=== PATIENT | female | born 1955 | race Hispanic/Latino ===

== ENCOUNTER 2017-01-02 19:28 | Emergency (ER) | payer OTHER ==
[~2017-01-02] VITALS: Ht 167.6 cm; Wt 97.7 kg
[~2017-01-02 19:28] MED LIST: ACET325C PO; ASPI-973 PO; LORA0.5T PO
[2017-01-02 19:52] VITALS: BP 122/79; PULSE 86; RESP 18; O2SAT 96
[2017-01-02 20:24] LABS: BASOPHILS % (AUTO) 0.5 % (0-3); EOSINOPHILS % (AUTO) 3.1 % (0-5); MONOCYTES % (AUTO) 7.1 % (4-12); Mean Corpuscular Hemoglobin 30.2 pg (27.0-35.0); Mean Corpuscular Volume 91.2 fL (81-100); NEUTROPHILS % (AUTO) 69.9 % (40-74); Platelet Count 313 bil/L (150-400)
[2017-01-02 20:43] LABS: APPEARANCE,URINE CLEAR (CLEAR,HAZY); COLOR,URINE YELLOW (YELLOW); OCCULT BLOOD,URINE NEGATIVE (NEGATIVE); UROBILINOGEN,URINE NORMAL (NORMAL)
[2017-01-02 20:45] LABS: Magnesium 2.1 mg/dL (1.6-2.6)
--- NOTE | 2017-01-02 21:30 | ED.REPORT ---
HPI-Abd Pain F 40 and Over Date of Service January 02, 2017 ED Provider: Dr. Kam 61 y/o female with a hx of HTN and DM presents to the ED complaining of abdominal pain, onset 4 days ago. The pt states she had a hysterectomy approximately 2 weeks ago and the surgical site has been painful for the past few days. The pt states the pain is exacerbated when she stands up and relieved when she lays down. Associated sx include pain during BM. She denies fever and chills. Nursing Notes Stated Complaint: PAIN IN ABDOMEN Chief Complaint: Female Abdominal Pain Nursing Notes Reviewed: Yes Allergies: Coded Allergies: No Known Allergies (Unverified Allergy, Unknown, 01/02/17) Scheduled Aspirin (Aspirin) 81 Mg Tablet 81 MG PO DAILY Scheduled PRN Acetaminophen (Acetaminophen) 325 Mg Capsule 325 MG PO prn PRN PRN For Headache Lorazepam (Lorazepam) 0.5 Mg Tablet 0.5 MG PO TID PRN PRN For Anxiety General Time Seen by MD: 21:30 Chief Complaint Abdominal pain Hx Obtained From: Patient Arrived By: Walk-in Sudden in Onset?: Yes Onset Occurred: 4 days ago Context of Onset: Recent surgery Symptom Duration: Since onset Progression since Onset: Unchanged Location: : Suprapubic Quality: Painful Radiation: : Does not radiate Severity: Current: Moderate Severity: Maximum: Moderate Recent Healthcare: Recent doctor visit Similar Sx Previous: No Past Medical History Past Medical History Reports: Diabetes mellitus, Hypertension Past Surgical History Reports: Hysterectomy Family History Noncontributory Smoking History Current Every Day Smoker Social History Alcohol Use: Denies alcohol use Drug Use: Denies drug use Other Social History: Good social support, , Local resident Occupation lives with Ambulatory Status Independent Review of Systems Reports: abdominal pain during BM Constitutional: Denies: Chills, Fever GI: Reports: Abdominal pain Complete sys rev & neg: except as marked. Physical Exam Vital Signs Vital Signs (First) Date Time Temp Pulse Resp B/P Pulse Ox O2 Delivery O2 Flow Rate FiO2 01/02/17 19:52 36.5 86 18 122/79 96 Room Air Initial VS: Reviewed Head / Eyes: Atraumatic, Normocephalic Neck: Supple, Full range of motion Extremities: Vascular intact, Neuro intact, No swelling, No tenderness Skin: Warm, Dry, No cyanosis Neurologic: Alert, Oriented, Nonfocal General/Constitutional: Awake, Alert, Cooperative Respiratory / Chest: Atraumatic, Breath sounds NL, Breath sounds = bilat, No respiratory distress, No rales, No rhonchi, No wheezing Cardiovascular: Heart rate NL, Regular rhythm, Heart sounds NL, No gallop, No murmurs, No rubs Abdomen: No guarding, No rebound Tenderness and vague mass over periincisional site. Back: Atraumatic, Full range of motion Interpretation & Diagnostics Lab Results Interpretation Result Diagram: 01/02/17201401/02/172014 Test 01/02/17 20:15 01/02/17 20:25 White Blood Count 10.2th/mm3 (3.8-10.1) Red Blood Count 4.30mil/mm3 (3.90-5.20) Hemoglobin 13.0g/dL (12.0-15.6) Hematocrit 39.2% (35.0-46.0) Mean Corpuscular Volume 91.2fL (81-100) Mean Corpuscular Hemoglobin 30.2pg (27.0-35.0) Mean Corpuscular Hemoglobin Concent 33.2% (32.0-37.0) Red Cell Distribution Width 13.2% (12.3-15.4) Platelet Count 313bil/L (150-400) Neutrophils (%) (Auto) 69.9% (40-74) Lymphocytes (%) (Auto) 19.0% (14-46) Monocytes (%) (Auto) 7.1% (4-12) Eosinophils (%) (Auto) 3.1% (0-5) Basophils (%) (Auto) 0.5% (0-3) Sodium Level 140mEq/L (134-144) Potassium Level 4.2mEq/L (3.5-5.2) Chloride Level 102mEq/L (97-108) Carbon Dioxide Level 26mmol/L (18-29) Blood Urea Nitrogen 18mg/dL (6-24) Creatinine 0.58mg/dL (0.57-1.00) Estimat Glomerular Filtration Rate 152mL/min (>59) Glucose Level 223mg/dL (60-99) Calcium Level 9.4mg/dL (8.5-10.1) Magnesium Level 2.1mg/dL (1.6-2.6) Total Bilirubin 0.2mg/dL (0.0-1.2) Aspartate Amino Transf (AST/SGOT) 14U/L (0-50) Alanine Aminotransferase (ALT/SGPT) 25U/L (0-32) Alkaline Phosphatase 110U/L (25-165) Total Protein 7.1g/dL (6.4-8.4) Albumin 3.8g/dL (3.4-5.0) Lipase 27U/L (13-60) Urine Color Yellow (YELLOW) Urine Appearance Clear (CLEAR,HAZY) Urine pH 6.0 (5.0-8.0) Urine Specific Alexis 1.025 (1.003-1.035) Urine Protein Negativemg/dL (NEG,TRACE) Urine Glucose (UA) 100mg/dL (NEGATIVE) Urine Ketones Negativemg/dL (NEGATIVE) Urine Occult Blood Negative (NEGATIVE) Urine Nitrite Negative (NEGATIVE) Urine Bilirubin Negative (NEGATIVE) Urine Urobilinogen Normalmg/dL (NORMAL) Urine Leukocyte Esterase Trace (NEGATIVE) Urine RBC 0-2/hpf (0-2) Urine WBC 6-10/hpf (0-5) Urine Epithelial Cells Few/hpf (NONE-MOD) Urine Crystals None seen (NONE SEEN) Urine Bacteria Few/hpf (NONE-FEW) Urine Hyaline Casts None/lpf (NONE) Urine Granular Casts None seen (NONE SEEN) Urine Waxy Casts None seen (NONE SEEN) Urine Red Blood Cell Casts None seen (NONE SEEN) Urine White Blood Cell Casts None seen (NONE SEEN) Urine Mucus None seen (None Seen) Urine Trichomonas None seen (NONE SEEN) Urine Yeast None (NONE SEEN) Urinalysis Comment None Urine Culture Reflexed Indicated CT Abd / Pelvis Interpretation Impression: Status post hysterectomy. Well-defined fluid collection is present in the infraumbilical abdominal wall subcutaneous fat. Differential possibilities include postoperative abscess, seroma, resolving hematoma. Hepatomegaly with fatty liver infiltration. Probable benign right hepatic cyst. Nonemergent followup recommended to assure benign nature. Signed by Alma Membreno M.D. 01/02/17. 22:16 Study type: Abdominal CT IV contrast Interpretation / Wet Read by: Interpret - Radiologist Re-Eval/Medical Decision Med Decision/Clinical Course Fluid collection deep to the wound. No signs of sepsis. Consulted with gynecology. They will see her in the office. Copy of her CAT scan was given. Short course of Percocet dispensed for pain. Return if any problems. Routine opiate warnings given. Re-Evaluation/Progress #1: Time of Eval: 23:02 Re-Evaluation/Progress Note: Rechecked pt. Discussed lab, imaging results and diagnosis. Re-Evaluation/Progress #2: Time of Eval: 01:27 Re-Evaluation/Progress Note: Rechecked pt. Discussed lab, imaging results and diagnosis. Informed the pt of the plan to discharge. Pt understands and agrees with plan. F/U instructions and RTER warning given. All questions addressed. Consultation : Call Returned at: 01:00 Head Loft Worker: Will see in office Note: Consulted [facility] on-call surgeon who doesn't want any action taken. Will see the pt in office today. Counseled Regarding: Diagnosis, Lab results, Need for follow-up, When/why to return to ED Discharge & Departure Primary Impression: Postoperative abdominal pain Disposition: Home Patient Instructions: Acute Abdominal Pain (ED) Additional Instructions: The CAT scan shows a fluid collection in the subcutaneous fat deep to the wound. This fluid may be blood, postoperative inflammatory fluid or possibly infection. I consulted with the surgeon utilization management manager for Dr. Samson. She would like us to leave it alone for now and have you seen in the office this week. Take a copy of the CAT scan with you to the office. Call later this morning for follow -up. He may take 1-2 Percocet every 6 hours as needed for severe pain. Do not drive or drink alcohol or consume acetaminophen for taking the Percocet. If you develop a fever or the wound becomes red or drains them come back to the emergency department. Do not drive tonight as you have receive sedating medications. Referrals: Shan Cardenas DO (PCP) Scribe Attestation Portions of this note were transcribed by Andrew Pederson. I, , personally performed the history, physical exam and medical decision-making;I reviewed and confirmed the accuracy of the information in the transcribed note. Signed by Ophelia Andrews. 01/03/17 01:27 copies to: Shan Cardenas Todd P DO January 02, 2017 21:30 Andrew Pederson January 03, 2017 00:48
[2017-01-02 21:56] VITALS: BP 119/69; PULSE 83; RESP 18; O2SAT 97
[2017-01-03 00:10] VITALS: BP 127/76; PULSE 79; RESP 18; O2SAT 97
[2017-01-03] MEDS ORDERED: HYDROmorphone 1 mg/mL Inj IVPUSH ONE (00:30)
[2017-01-03] MEDS ORDERED: _oxyCODONE/APAP 5-325 mg Tablet PO PRN (01:20)
[2017-01-03 01:46] VITALS: BP 130/78; PULSE 80; RESP 16; O2SAT 98
--- NOTE | 2017-01-03 10:05 | DRSVH ---
PROCEDURE: CT ABDOMEN AND PELVIS WITH CONTRAST ([id number]) INDICATIONS: wound pain and swelling in abdomen TECHNIQUE: After the administration of intravenous contrast, 5 mm thick sections acquired from the diaphragm to the symphysis. 5 mm coronal and sagittal reformats were acquired. For radiation dose reduction, the following was used: automated exposure control, adjustment of mA and/or kV according to patient kathryn cuenca. COMPARISON: [facility], CT, CT CHEST ABD PELVIS W CON, 10/23/2016, 14:02. FINDINGS: Image quality: Excellent. ABDOMEN: Lung bases: Lung bases are clear. Heart size is normal. Solid organs: Liver is mildly enlarged steatosis. Left hepatic lobe cyst is unremarkable. The spleen has normal in size and enhancement. Gallbladder is unremarkable. Biliary system is non dilated. P ancreas enhances normally. No adrenal nodules. Kidneys demonstrate normal size and enhancement, wit hout hydronephrosis. Peritoneum and bowel: Bowel loops demonstrate normal wall thickness and caliber. No free fluid or a ir. Nodes and vessels: No retroperitoneal or mesenteric adenopathy by size criteria. Aorta and inferior vena cava are normal in size. Miscellaneous: There is a 29 mm AP by 33 mm transverse fluid collection within the infraumbilical ant erior subcutaneous fat. No gas is identified within the fluid. Mild stranding is noted within the mony rounding subcutaneous fat. PELVIS: Genitourinary: Bladder wall thickness is normal. Miscellaneous: No inguinal hernias or adenopathy. Bones: No suspicious bony lesions. No vertebral body compression fractures. IMPRESSION: 1. Fluid collection with surrounding inflammation in the anterior wall subcutaneous fat with a differ ential of postoperative abscess, seroma or potentially resolving hematoma. 2. Hepatomegaly with steatosis. Dictated by: Alethea Romero M.D. on 01/03/2017 at 10:00 Approved by: Alethea Romero M.D. on 01/03/2017 at 10:03
== END 2017-01-03 01:47 | disposition home or self-care (01) ==
LOC: SED 19:28
DX: G89.18 Other acute postprocedural pain (principal); R10.30 Lower abdominal pain, unspecified; I10 Essential (primary) hypertension; E11.9 Type 2 diabetes mellitus without complications; F17.200 Nicotine dependence, unspecified, uncomplicated; Z90.710 Acquired absence of both cervix and uterus; Z79.82 Long term (current) use of aspirin
CPT/HCPCS: 36415; 74177; 80053; 81000; 83690; 83735; 85025; 87086; 87088; 96374; 99285; J1170; Q9967

== ENCOUNTER 2017-01-30 09:56 | Day surgery (SDC) | payer OTHER ==
[2017-01-30] VITALS (10 sets, daily range): BP systolic 115–150; BP diastolic 74–91; PULSE 86–98; RESP 13–22; O2SAT 94–100
[~2017-01-30] VITALS: Ht 167.6 cm; Wt 96.8 kg
[2017-01-30] MEDS ORDERED: fentaNYL-PF 50 mCg/mL 2 mL Inj ONE (09:57)
[2017-01-30] MEDS ORDERED: Ondansetron 2 mg/mL 2 mL Inj ONE (09:57)
[2017-01-30] MEDS ORDERED: Phenylephrine/NS 100 mCg/mL 10 mL Syringe IVPUSH ONE (09:57)
[2017-01-30] MEDS ORDERED: Dexamethasone 4 mg/mL Inj ONE (09:57)
[2017-01-30] MEDS ORDERED: MetoCLOpramide 5 mg/mL 2 mL Inj ONE (09:57)
[2017-01-30] MEDS ORDERED: Propofol 10,000 mCg/mL 20 mL Inj ONE (09:57)
[2017-01-30] MEDS: Lactated Ringer's 1,000 ML IV SCH ×2 (10:11→11:03)
[2017-01-30] MEDS ORDERED: SENN-169 PO (10:38)
[2017-01-30] MEDS ORDERED: OXYC5TAB72 PO (10:38)
[2017-01-30] MEDS ORDERED: Lactated Ringer's 1,000 ML IV SCH (10:56)
[2017-01-30] MEDS ORDERED: Lactated Ringer's 500 ML IV PRN (10:56)
--- NOTE | 2017-01-30 10:56 | PCM.HPANE ---
Patient Data Date of Service: Jan 30, 2017 Surgeon Admitting Provider: Attending Provider:Omi Madrid MD Primary Care Physician:Shan Cardenas DO Other Provider:Yana Gramajo Anesthesia Reason for Visit Left Breast Cancer, Right Breast Adh Ht/WT & BMI Height (Feet): 5 Height (Inches): 6 Weight (Kilograms): 96.8 Body Mass Index 34.00 Allergies Coded Allergies: No Known Allergies (Unverified Allergy, Unknown, 01/02/17) Past Anesthesia History Anesthesia History: Denies:: Anesthesia Reactions Diabetes History Hx Diabetes?: Yes Type of Diabetes: Diet Controlled Current Bedside Blood Glucose: 146 MRSA MRSA: No Medications Hypertension Medication: No Home Meds Incl Beta Reina: No Reported Medications Sennosides/Docusate Sodium (Stool Softener-Stimulant Lax)8.6 Mg-50 Mg Tablet1 Tab PO PRN #30 01/30/17 oxyCODONE 5 Mg Tablet5 Mg PO PRN #60 01/30/17 Lorazepam 0.5 Mg Tablet0.5 Mg PO TID PRN For Anxiety Ref 0 11/29/16 Acetaminophen 325 Mg [id number] Mg PO prn PRN For Headache 10/18/16 Aspirin 81 Mg [id number] Mg PO DAILY Ref 0 10/18/16 History History of ENT Problems?: No HEENT History: Denies:: Abnormal Airway Hearing Problem Denture Type: None Teeth Condition: Within Normal Limits Hx of Heart Problems?: No Cardiovascular History: Denies:: Chest Pain Congestive Heart Failure Hypertension Hx of Respiratory Problem?: No Respiratory History: Denies:: Oxygen Administration Tuberculosis Use of C-PAP Machine Hx Neurologic Problems?: No Hx of GI Problems?: No Gastrointestinal History: Positive for:: Gastroesphageal Reflux (occassionall) Hx of Problems?: No Genitourinary History: Denies:: Kidney Stones Female Hx: Positive for:: Problems with Breasts? (left breast ca current admission problem, ) Denies:: Currently Hx Musculoskeletal Problems?: No Hx of Psycho/Social Problems?: No Hx Surgeries?: Yes (ANDRESSA/BSO) Hx Any Other Health Problems?: Yes Other History: Positive for:: Cancer (left breast) Denies:: Thyroid Disease Hx Diabetes: YesBedside Blood Glucose: 146 Hx Alcohol Use: NoHx Substance Use: No Smoking Status: Current Every Day Smoker Have You Smoked inLast 12 mo: Yes Stop/Bang Treated for Sleep Apnea?: No Do You Have a CPAP Machine?: No P-Blood Pressure: treated: No B- Body Mass Index > 35 kg/m2: No A- Age over 50: Yes N- Neck Large Circumference: No G- Gender Male: No MALIA Risk Assessment: Low Risk, <3 Yes MALIA Category 4 OutPt Procedure: Yes Risk Assessment Category Category 1A: Patient has history of documented sleep apnea, and HAS NOT received any narcotic, sedative or anesthesia administration during this stay. Category 1B: Patient has history of documented sleep apnea, and HAS received any narcotic , sedative or anesthesia administration during this stay Category 2: Patient has SUSPECTED Obstructive Sleep Apnea, and HAS received any narcotic , sedative or anesthesia administration during this stay. Category 3: Patient has SUSPECTED Obstructive Sleep Apnea and HAS NOT received narcotic, sedative or anesthesia administration during this stay. Category 4: Outpatient in Procedural Areas with known sleep apnea or who screen positive for High Risk via the STOP/BANG questionnaire. Exam Exam Vital Signs Vital Signs Date Time Temp Pulse Resp B/P Pulse Ox O2 Delivery O2 Flow Rate FiO2 01/30/17 10:27 35.9 98 18 115/81 98 Room Air General Appearance: Alert, Oriented X3, Cooperative HEENT/AIRWAY: MP 3, Neck Movement, Mouth Opening (Wide) Lungs: Clear to Auscultation, Normal Air Movement Heart: Regular Rate/Rhythm, Normal S1, Normal S2 Meds/Labs/Diagnostics Admission Meds Current Medications Lactated Ringer's (Lr) 1,000 ml @ 120 mls/hr Q8H20M IV Last administered on 10:11; Start 01/30/17 at 05:00; Stop 01/30/17 at 13:19 Scopolamine (Transderm-Scop Patch) 1.5 mg ONCE ONCE TOPICAL Last administered on 01/30/17 10:29; Start 01/30/17 at 07:25; Stop 01/30/17 at 07:26; Status DC Bedside Blood Glucose: 146 Plan Impression Patient chart reviewed, patient interviewed and anesthestic plan with risks, benefits, and alternatives discussed, and informed consent obtained. NPO per Anesth. Guidelines: Yes ASA Physical Status: ASA1 Plus Emergency Anesthetic Plan: GA Bene/Risks/Altern/Consents: Yes HP Complete Prior to Induction: Yes Ciro Pro MD Jan 30, 2017 10:56
[2017-01-30] MEDS ORDERED: fentaNYL-PF 50 mCg/mL 2 mL Inj IVPUSH PRN (11:00)
[2017-01-30] MEDS ORDERED: HYDROmorphone 1 mg/mL Inj IVPUSH PRN (11:00)
[2017-01-30] MEDS ORDERED: Dexamethasone 4 mg/mL Inj IVPUSH PRN (11:00)
[2017-01-30] MEDS ORDERED: Labetalol 5 mg/mL 4 mL Inj IV PRN (11:00)
[2017-01-30] MEDS ORDERED: Ondansetron 2 mg/mL 2 mL Inj IVPUSH PRN (11:00)
[2017-01-30] MEDS ORDERED: hydrALAZINE 20 mg/mL Inj IVPUSH PRN (11:00)
[2017-01-30] MEDS ORDERED: Atropine 0.4 mg/mL Inj IVPUSH PRN (11:00)
[2017-01-30] MEDS ORDERED: MetoCLOpramide 5 mg/mL 2 mL Inj IVPUSH PRN (11:00)
[2017-01-30] MEDS ORDERED: Phenylephrine 10,000 mCg/mL Inj IVPUSH PRN (11:00)
[2017-01-30] MEDS ORDERED: EPHEDrine Sulfate 50 mg/mL Inj IVPUSH PRN (11:00)
--- NOTE | 2017-01-30 11:14 | DRSVH ---
PROCEDURE: NM SENTINEL NODE INJECTION ONLY, LEFT BREAST RADIOPHARMACEUTICAL: 0.5 mCi Millipore filtered Tc-99m sulfur colloid. INDICATIONS: LEFT BREAST CANCER PROCEDURE: The indications, alternatives, benefits, risks, and complications of the procedure were explained to the patient. Written informed consent was obtained and placed in the chart. The area around the nip ple was prepped and draped in a sterile fashion. Tc-99m sulfur colloid was injected in the outer edg e of the areola in the left breast. No image was obtained. IMPRESSION: Administration of radiotracer into the left breast periareolar region for intra-operativ e sentinel lymph node localization. Dictated by: Kelby Willard M.D. on 01/30/2017 at 11:12 Approved by: Kelby Willard M.D. on 01/30/2017 at 11:13
[2017-01-30] MEDS ORDERED: Bupivacaine-MPF 0.5% W/EPI 30 mL Inj INFILTRATE ONE (11:40)
--- NOTE | 2017-01-30 13:09 | PCM.SURGOP ---
Surgical Operative Report Date of Service: Jan 30, 2017 Pre Operative Diagnosis Left breast cancer, right breast atypical ductal hyperplasia Post Operative Diagnosis Same Procedure: Left partial mastectomy, left axillary sentinel lymph node biopsy, right wire localized excisional breast biopsy Surgeon and Clinical Research Spec: Surgeon: Omi Madrid MD Assistants: Chucho Conde PA-C Indication for Procedure 61-year-old woman who had a palpable left breast mass, and biopsy of that showed invasive ductal carcinoma. Breast MRI showed an area of enhancement in the right breast, and MRI guided biopsy showed focal flat epithelial atypia and atypical ductal hyperplasia. After discussion of risks and benefits, she agreed to proceed with left partial mastectomy, left axillary sentinel lymph node biopsy, wire localized right breast excisional biopsy. Findings: Wire localization on the right was successful with both clips being localized. On the left, there was a single sentinel lymph node, and a single non-sentinel lymph node was excised as well. Procedure Details Preoperatively, the patient underwent right breast wire localization in the [facility]. In the preoperative area, she then underwent left breast radiotracer injection for sentinel node identification. She was brought to the operating room, where she underwent smooth induction of general anesthesia with an LMA. There was an excellent radiotracer signal in the left axilla, so methylene blue was not utilized. She was placed in the supine position with both arms out, and was prepped and draped in wide sterile fashion. A procedural pause was performed according to the SCOAP checklist, and all were found to be in agreement. A transverse incision was made in the right breast upper outer quadrant, encompassing the wire into the incision. Skin flaps were raised superiorly and inferiorly. Dissection was carried through the breast parenchyma until the thick part of the wire was encountered. Wire localized right breast excision was then performed using circumferential dissection with electrocautery, using the wire as a guide. The right breast tissue was excised, oriented, and a specimen radiograph was obtained. This confirmed that both mammographic clips had been successfully localized. That tissue was sent for permanent pathology, labeled as right breast tissue, upper outer quadrant. The breast parenchyma was closed with interrupted 3-0 Vicryl suture. The skin incision was closed with a deep subcutaneous 3-0 Vicryl suture, and a running 4-0 Vicryl subcuticular stitch. Dermabond was applied to the skin as a dressing. A curvilinear circumareolar incision was made in the lower inner quadrant of the left breast. Skin flaps were raised. Circumferential dissection was then carried out with electrocautery around the palpable breast lesion. There was some fairly dense tissue in the subareolar space. Left breast tissue was excised, oriented with suture, and a specimen radiograph was obtained. This probably demonstrated the mammographic clip, although the x-ray was less clear, but because the lesion was easily palpable, additional tissue was not taken strictly for the purpose of getting the clip. That tissue was labeled as left breast tissue, lower inner quadrant, and sent for permanent pathology. A separate margin was obtained from the nipple side of the cavity, which was the superior anterior lateral margin. That was oriented with suture, and sent for permanent pathology. Breast parenchymal flaps were then elevated off the underlying chest wall from the superior and lateral aspects. Breast parenchymal flaps measured approximately 5 x 5 cm each. That tissue was reapproximated to fill the space with a series of interrupted 3-0 Vicryl sutures. The skin was elevated off the underlying breast tissue as well to minimize puckering and dimpling. The skin incision was closed with interrupted deep dermal 3-0 Vicryl sutures, and a running 4-0 Vicryl subcuticular stitch. A curvilinear incision was then made at the inferior border of the hairbearing skin in the left axilla. Dissection was carried through the subcutaneous tissue until the axillary fascia was incised. Using the gamma probe as a guide , the area of maximal radiotracer activity was dissected free from the surrounding tissues. At first, a small wagner specimen was excised, thinking that I had the area of maximum activity, but ex vivo, and had a fairly low count at 40. An adjacent lymph node was then excised, which had a gamma count ex vivo of 543. This was labeled as eft axillary sentinel lymph node. The first wagner specimen was labeled as left axillary non-sentinel lymph node. Both were sent for permanent pathology. The background count in the left axilla was 6. The axillary fascia was closed with an interrupted 3-0 Vicryl suture. The skin incision was closed with a running 4-0 Vicryl subcuticular stitch. Dermabond was applied to the incisions as a dressing. At the end of the case all needle and sponge counts were correct 2. The patient was awakened from anesthesia without difficulty, and taken to the recovery room in satisfactory condition, having tolerated the procedure well. Complications There were no periprocedural complications identified. Surgical Specimen Removed: Yes Specimen sent to Pathology: Yes Surgical Specimen description: Right breast tissue, upper outer quadrant. Left breast tissue, lower inner quadrant. Left breast superior anterior lateral margin. Left axillary sentinel lymph node. Left axillary non-sentinel lymph node. Anesthetic Plan: GA Grafts, Implants: None Output, Estimated Blood Loss: 20 Blood Administration during huerta: No Drains: None Catheters: None copies to: Shan Cardenas DO; Annie Sousa Joshua D MD Jan 30, 2017 13:09
[2017-01-30] MEDS ORDERED: HYDROcodone-APAP 5-325 mg Tablet PO PRN (13:10)
--- NOTE | 2017-01-30 13:13 | PCM.DISURG ---
Surgical Discharge Instruction Date of Service Jan 30, 2017 Dates of Hospitalization Date of Hospital Admission Providers Admitting Physician: Primary Care Physician: Shan Cardenas DO Attending Physician: Omi Madrid MD Discharge Diagnosis Discharge Diagnosis left breast cancer, right breast ADH Post Operative diagnosis Same Diet Discharge Diet: No restrictions Activity Discharge Activity-General: Activity as pain allows Dressing and Incisional Care Dressing Instructions: Dermabond will peel off gradually Hygiene: May shower Follow Up Plan Follow Up Plan with Dr. Madrid in surgery clinic in 7-10 days Call your provider for: Fever (over 101.5F), Discharge @ incision, pus discharge Omi Madrid MD Jan 30, 2017 13:13
--- NOTE | 2017-01-30 15:38 | PCM.ANEP1 ---
Post Anesthesia PACU Phase 1 Assessment Date of Service: Jan 30, 2017 Vital Signs Vital Signs Date Time Temp Pulse Resp B/P Pulse Ox O2 Delivery O2 Flow Rate FiO2 01/30/17 14:18 36.6 89 15 131/81 95 Nasal Cannula 3 01/30/17 14:08 92 13 139/89 95 Nasal Cannula 3 01/30/17 13:50 86 14 130/81 94 Room Air 01/30/17 13:30 90 13 141/86 95 Room Air 01/30/17 13:25 88 13 139/91 100 Simple Mask 10 01/30/17 13:20 91 17 136/82 98 Simple Mask 10 01/30/17 13:15 36.1 89 15 150/84 98 Simple Mask 10 01/30/17 10:27 35.9 98 18 115/81 98 Room Air Anesthetic Administered: GA Level of Alertness: Awake, talking NATUNEZ's with Equal Strength: Yes Pain: No Nausea or Vomiting: No CV Function & Hydration Stable: Yes Airway Device: Oxygen Delivery: Room Air Lungs: Normal Air Movement PACU Phase 2 Assessment Complications: No Follow up Care: N/A Patient Instructions Provided: N/A Ciro Pro MD Jan 30, 2017 15:38
--- NOTE | 2017-01-31 07:47 | DRSVH ---
SPECIMEN RIGHT BREAST: 01/30/2017 CLINICAL: Breast specimen. Correlation is made to exams dated: 01/30/2017 localization, 12/12/2016 MRI biopsy, and 12/12/2016 mammog [facility]. A surgical specimen was imaged for the previous biopsy site located in the right breast at 12 o'cloc k anterior depth. This was described on the previous MRI and biopsy reports. IMPRESSION: SPECIMEN The imaged specimen includes biopsy clips. Waiting for pathology results. A final report will be is sued when these become available. This exam was interpreted at Station ID: [id number]. Ottoniel agee/estee:01/30/2017 14:12:01 Additional referring physicians: LUISANA MARKS, FREDIS HULL
--- NOTE | 2017-01-31 07:47 | DRSVH ---
SPECIMEN LEFT BREAST: 01/30/2017 CLINICAL: Breast specimen. Correlation is made to exams dated: 11/09/2016 breast MRI - Located [facility], 09/28/2016 mammogr am, and 09/28/2016 ultrasound biopsy - [facility]. A lumpectomy specimen was imaged for the palpable mass located in the left breast at 8 o'clock middl e depth. This was described on the previous mammography, ultrasound, MRI, and biopsy reports. IMPRESSION: SPECIMEN The imaged specimen includes the lesion. Waiting for pathology results. A final report will be issu ed when these become available. This exam was interpreted at Station ID: [id number]. Ottoniel agee/estee:01/30/2017 14:33:27 Additional referring physicians: LUISANA MARKS, FREDIS HULL
--- NOTE | 2017-01-31 07:47 | DRSVH ---
SPECIMEN LEFT BREAST: 01/30/2017 CLINICAL: Breast specimen. Correlation is made to exams dated: 11/09/2016 breast MRI - [facility], 09/28/2016 ultraso und biopsy, and 09/28/2016 mammogram - [facility]. A lumpectomy specimen was imaged for the palpable solid mass located in the left breast at 8 o'clock middle depth. This was described on the previous mammography, ultrasound, MRI, and biopsy reports. IMPRESSION: SPECIMEN The imaged specimen includes the lesion and a biopsy clip. Waiting for pathology results. A final r eport will be issued when these become available. This exam was interpreted at Station ID: [id number]. Ottoniel agee/estee:01/30/2017 14:32:04 Additional referring physicians: LUISANA MARKS, FREDIS HULL
--- NOTE | 2017-02-02 07:44 | PATH ---
SURGICAL PATHOLOGY Attending Physician:Elias Alston CASE STATUS: Signed Out PATIENT NAME: GEORGIA BATRES PID: [id number] : 1955 DATE COLLECTED:01/30/2017 21:11 SPECIMEN: 1: Breast Mass, Excision (Wire Localization) 2: Breast Mass, Excision 3: Breast Margin 4: [place] Lymph Node 5: Lymph Node, Biopsy CLINICAL HISTORY: LEFT BREAST CANCER, RIGHT BREAST ADH 1). RIGHT BREAST TISSUE UPPER OUTER QUADRANT, SHORT STITCH SUPERIOR, LONG LATERAL OUT AT 11:30, FIXATIVE @ 11:45 2). LEFT BREAST TISSUE LOWER INNER QUADRANT, SHORT STITCH SUPERIOR, LONG LATERAL OUT @ 12:15, FIXATIVE @ 12:20 3). LEFT ANTERIOR SUPERIOR LATERAL MARGIN, SHORT STITCH SUPERIOR, LONG STITCH ANTERIOR OUT @ 12:20, FIXATIVE @ 12:24 4). LEFT AXILLARY SENTINEL LYMPH NODE-543 5). LEFT AXILLARY SENTINEL LYMPH NODE-40 FINAL DIAGNOSIS: 1.RIGHT BREAST EXCISIONAL SPECIMEN (WIRE LOCALIZATION): STATUS POST BIOPSY, RECENT, WITH SEVERAL FOCI OF FLAT DUCT EPITHELIAL ATYPIA IN THE REGION OF THE BIOPSY SITE. NEGATIVE FOR EVIDENCE OF DUCT CARCINOMA IN SITU OR INVASIVE MALIGNANCY. 2.LEFT BREAST EXCISIONAL SPECIMEN, LOWER INNER QUADRANT: INVASIVE CARCINOMA (SEE CAP CANCER SUMMARY BELOW). 3.LEFT ANTERIOR SUPERIOR LATERAL MARGIN RE-EXCISION: BENIGN BREAST TISSUE, NEGATIVE FOR ATYPIA AND MALIGNANCY. 4.LEFT AXILLARY SENTINEL LYMPH NODE: NEGATIVE FOR MALIGNANCY (SEE CAP CANCER SUMMARY BELOW). 5.LEFT AXILLARY SENTINEL LYMPH NODE: NEGATIVE FOR MALIGNANCY (SEE BREAST CANCER CASE SUMMARY BELOW). ICD10 C50.312 CAP CANCER CASE SUMMARY INVASIVE CARCINOMA OF THE BREAST: PROCEDURE: EXCISIONAL SPECIMEN WITHOUT WIRE LOCALIZATION SPECIMEN LATERALITY: LEFT TUMOR SITE: LOWER INNER QUADRANT (7 O' CLOCK) TUMOR SIZE: 2.2 X 2.2 X 1.3 CM HISTOLOGIC TYPE: INVASIVE DUCTAL CARCINOMA HISTOLOGIC GRADE: JAVAN HISTOLOGIC SCORE 7 OF 9 Glandular/Tubular differentiation: Score 3 OF 3 Nuclear Pleomorphism: Score 2 OF 3 Mitotic Rate: Score 2 OF 3 Overall Grade: Grade 2 OF 3 (INTERMEDIATE GRADE) TUMOR FOCALITY: SINGLE FOCUS DUCTAL CARCINOMA IN SITU: PRESENT Size (Extent) of DCIS: MULTIPLE SMALL FOCI IN THE VICINITY OF THE TUMOR Architectural patterns: SOLID Nuclear grade: Grade 2 OF 3 Necrosis: ABSENT MARGINS INVASIVE CARCINOMA: Anterior: 0.1 CM Posterior: 0.6 CM Superior: 2.1 CM Inferior: 0.8 CM Medial: 1.3 CM Lateral: 0.4 CM DUCTAL CARCINOMA IN SITU: ALL MARGINS GREATER THAN 1.0 CM LYMPH NODES Total number of lymph nodes examined: 2 (PARTS 4 AND 5) Number of sentinel lymph nodes examined: 2 (PARTS 4 AND 5) Lymph Node Involvement: BOTH LYMPH NODES NEGATIVE FOR MALIGNANCY Method of Evaluation of [place] Lymph Nodes: H&E SECTIONS LYMPH-VASCULAR INVASION: NOT IDENTIFIED PATHOLOGIC STAGING: AJCC, 7th ed., 2010 PRIMARY TUMOR: pT2 REGIONAL LYMPH NODES: pN0 (sn) ANCILLARY STUDIES: (INFORMATION TAKEN FROM CLINICAL ONCOLOGY NOTE OF 10/18/16). Biomarkers Performed on Previous Case: Estrogen Receptor (ER) Status: POSITIVE Progesterone Receptor (PgR) Status: POSITIVE HER2 (by immunohistochemistry): NEGATIVE (1+) BY IMMUNOHISTOCHEMISTRY GROSS DESCRIPTION: The specimens are received in formalin, labeled with the patient's name, and sublabeled as the following: (1) right breast tissue upper outer quadrant; (2) left breast tissue lower inner quadrant; (3) left anterior superior lateral margin; (4) left axillary sentinel lymph node; (5) left axillary non-sentinel lymph node. (1) The specimen consists of a piece of breast tissue (4.8 cm AP, 3.0 cm SI, 4.2 cm ML) with no overlying skin. The specimen is oriented with 2 black sutures (short-superior, long-lateral). A localization wire is present. The specimen is serially sectioned AP into 15 slices with the anterior and posterior resection margins slices #1 and #15 respectively. The breast tissue is fatty and contains a osman-white and focally bright yellow solid firm irregular hemorrhagic mass (3.7 x 2.6 x 1.1 cm) within slices #4-#14. The mass is 0.8 cm from the anterior, 0.3 cm from the posterior, 0.7 cm from the superior, 0.1 cm from the inferior, 1.2 cm from the medial, and 0.1 cm from the lateral resection margins. No other nodules, masses or lesions are identified. A silver colored metal biopsy marker is identified within slice #9. Ink code: purple-anterior; yellow-posterior; black-superior; orange-inferior; green-medial; blue-lateral. Section code: (1A) anterior resection margin, perpendicularly sectioned; (1B) slice #2; (1C) slice #3, tissue adjacent to mass; (1D) slice #4; (1E) slice #5; (1F) slice #6; (1G-1H) slice #7, bisected and submitted ML; (1I-1J) slice #8, bisected and submitted ML; (1K-1L) slice #9, bisected and submitted ML; (1M-1N) slice #10, bisected and submitted ML; (1O) slice #11; (1P-1Q) slice #12, bisected and submitted ML; (1R-1S) slice #13, bisected and submitted ML; (1T-1U) slice #14, bisected and submitted ML; (1V-1W) posterior resection margin, perpendicularly sectioned. Specimen entirely submitted. (2) The specimen consists of a piece of breast tissue (3.0 cm AP, 5.1 cm SI, 4.3 cm ML). The specimen is oriented with 2 black sutures (short-superior, long-lateral). No localization wire is present. The specimen is serially sectioned SI into 17 slices with the superior and inferior resection margins slices #1 and #17 respectively. The breast tissue is fatty and contains a osman-white solid firm irregular mass (2.2 x 2.2 x 1.3 cm) within slices #7-#14. The mass is 0.2 cm from the anterior, 0.6 cm from the posterior, 2.1 cm from the superior, 0.8 cm from the inferior, 1.3 cm from the medial, and 0.4 cm from the lateral resection margins. No other nodules, masses or lesions are identified. Ink code: purple-anterior; yellow-posterior; black-superior; orange-inferior; green-medial; blue-lateral. Section code: (2A) superior resection margin, perpendicularly sectioned, entirely submitted; (2B) slice #3, business services representative; (2C) slice #4, business services representative; (2D) slice #5, business services representative; (2E-2G) slice #6, tissue adjacent to mass, trisected and submitted ML, entirely submitted; (2H-1I) slice #7, quartered, lateral half submitted AP; (2J) slice #8, bisected ML, lateral half submitted; (2K-2M) slice #9, trisected, submitted ML, entirely submitted; (2N) slice #10, quartered, anterolateral quarter submitted; (2O) slice #11, quartered, anterolateral quarter submitted; (2P) slice #12, quartered, posterolateral quarter submitted; (2Q) slice #13, trisected ML, middle third submitted; (2R) slice #14, bisected AP, anterior half submitted; (2S) slice #15, tissue adjacent to mass, entirely submitted; (2T-2U) slice #16, bisected and submitted ML, entirely submitted; (2V) inferior resection margin, perpendicularly sectioned, business services representative. (3) The specimen consists of a piece of breast tissue (3.0 cm AP, 4.6 cm SI, 0.7 cm ML) with no overlying skin. The specimen is oriented with 2 black sutures (short-superior, long-anterior). No localization wire is present. The breast tissue is fibrofatty with no nodules, masses or lesions identified. Ink code: purple-anterior; yellow-posterior; black-superior; orange-inferior; green-medial; blue-lateral. Section code: (3A- 3G) breast tissue, saline section and submitted as 5. Specimen entirely submitted. (4) The specimen consists of a lymph node (1.2 x 0.9 x 0.7 cm). Section code: (4A) one lymph node, saline sections. Specimen entirely submitted. (5) The specimen consists of 1.0 x 0.7 x 0.4 cm). Section code: (5A) one lymph node, serially sectioned. Specimen entirely submitted. Note: Approximately the fixation time in formalin for all specimens-30 hours and 30 minutes calculated using a collection date of February 07, 2017 with times in the fixative of 9197-1874. 01/31/17 JM MICRO DESCRIPTION: See diagnosis. ICD-9 CODES: CPT CODES: 1: 63345 2: 99116 3: 32886 4: 99932 5: 36073 Electronically Signed Out Luisito Mcmillan MD [facility] [address], [place] [address] Technical component performed at [facility], [facility] [address], [place], [address]
== END 2017-01-30 23:59 | disposition home or self-care (01) ==
LOC: SAS 09:56
PROVIDERS: ATTEND Student in an Organized Health Care Education/Training Program
DX: C50.312 Malignant neoplasm of lower-inner quadrant of left female breast (principal); N60.91 Unspecified benign mammary dysplasia of right breast; Z17.0 Estrogen receptor positive status [ER+]; E11.9 Type 2 diabetes mellitus without complications; F17.200 Nicotine dependence, unspecified, uncomplicated
CPT/HCPCS: 19125; 19301; 38525; 38792; 76098; A9541; J1100; J1885; J2250; J2370; J2405; J2765; J3010; J7120